=== PATIENT | male | born 1930 | race American Indian/Alaskan Native ===

== ENCOUNTER 2017-02-23 08:41 | Day surgery (SDC) | payer MEDICARE ==
[2017-02-23] MEDS ORDERED: Dextrose 5%-Lactated Ringers 1,000 ML IV SCH (09:30)
[2017-02-23] MEDS ORDERED: Lidocaine 1% with EPINEPHrine 1:100,000 50 ML MDV ONE (09:33)
[2017-02-23] MEDS ORDERED: Bupivacaine 0.5% 50 ML MDV ONE (09:33)
[2017-02-23] MEDS ORDERED: Propofol 200 MG/20 ML SDV ONE (10:58)
[2017-02-23] MEDS ORDERED: fentaNYL 100 MCG/2 ML SDV ONE (10:58)
[2017-02-23] MEDS ORDERED: Midazolam 1 MG/ML 2 ML SDV ONE (10:59)
--- NOTE | 2017-02-23 18:04 | OR ---
DATE OF PROCEDURE: 02/23/2017 PREOPERATIVE DIAGNOSIS: A 3 cm perianal mass. POSTOPERATIVE DIAGNOSIS: A 3.5 cm perianal mass. PROCEDURE: Excision of 3.5 cm perianal mass. SURGEON: Joaquin Cortez MD. ANESTHESIA: IV anesthesia with monitored anesthesia care. INDICATIONS: This 86-year-old white male has a perianal mass, it measures about 3 cm in diameter. He is here to have it excised. I counseled him for this and he gave his informed consent to proceed. DESCRIPTION OF PROCEDURE: The patient was placed in the jackknife position. IV anesthesia was administered by the Anesthesia Service. His anal and perianal area were prepped and draped in the usual sterile fashion. Time-out was held. Lidocaine 1% with epinephrine in a 50:50 mix with 0.5% Marcaine was infiltrated about the base of this mass. The mass was then excised using Bovie electrocautery and was delivered from the field. It was noted to measure 3.5 cm in greatest dimension. All looked well. Hemostasis was noted. A dressing was placed at the excision site. He was placed supine and brought to recovery room in good condition. Joaquin Cortez MD /[id number] MTDD
== END 2017-02-23 13:25 | disposition home or self-care (01) ==
LOC: JP.SDS 08:41
PROVIDERS: ATTEND Surgery
DX: D17.1 Benign lipomatous neoplasm of skin and subcutaneous tissue of trunk (principal); N18.9 Chronic kidney disease, unspecified; F32.9 Major depressive disorder, single episode, unspecified; E21.3 Hyperparathyroidism, unspecified; F03.90 Unspecified dementia, unspecified severity, without behavioral disturbance, psychotic disturbance, mood disturbance, and anxiety
CPT/HCPCS: 88304; J2250; J2704; J3010; J7042

== ENCOUNTER 2020-10-04 20:17 | Emergency (ER) | payer MEDICARE ==
[2020-10-04] MEDS ORDERED: ceFAZolin 1 GM in Premix Bag 1 BAG IV ONE ×2 (21:26→22:19)
[2020-10-04] MEDS ORDERED: Sodium Chloride 0.9% 10 ML Syringe FLUSH PRN (21:26)
[2020-10-04] MEDS ORDERED: Lidocaine 1% 20 ML MDV INJECT ONE (21:28)
[2020-10-04] MEDS ORDERED: Diphtheria,Pertussis(Acell),Tetanus Vaccine 0.5 ML Syringe IM ONE (22:00)
[2020-10-04] MEDS ORDERED: ceFAZolin 1 GM Vial ONE (22:21)
[2020-10-04] MEDS ORDERED: Sodium Chloride 0.9% 50 ML ONE (22:22)
--- NOTE | 2020-10-04 22:59 | CRLCT ---
For Patients: As a result of the Century Cures Act, medical imaging exams and procedure reports are released immediately into your electronic medical record. You may view this report before your referring provider. If you have questions, please contact your health care provider. INDICATION: FALL FROM STANDING HITTING HEAD CT HEAD WITHOUT CONTRAST TECHNIQUE: Multiple axial CT images were performed through the head without intravenous contrast administration. COMPARISON: No previous studies are currently available for comparison. FINDINGS: No acute intracranial hemorrhage is identified. No extra-axial collections are evident and there is no mass effect or midline shift. There is mild diffuse age-related brain atrophy. Ventricular size and configuration are within normal limits for the patient`s age. 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 There is patchy and confluent hypodensity in the periventricular white matter, a nonspecific finding which most likely reflects chronic small vessel ischemic change. A small to moderate-sized scalp hematoma is noted over the right frontal region. Osseous structures are within normal limits and no fractures are seen. Included portions of the paranasal sinuses and mastoid air cells are normally aerated. IMPRESSION: 1. No acute intracranial abnormality identified. 2. Right frontal scalp hematoma. No fracture is seen. 3. Mild age-related brain atrophy, white matter hypodensity consistent with chronic small vessel ischemic change, and small chronic left frontal lobe infarct. PRANAY JONES MD [employer] [employer] Dictated by Jermaine Jones MD @ 10/04/2020 10:58:10 PM Please note that all CT scans at this facility use dose modulation, iterative reconstruction, and/or weight-based dosing when appropriate to reduce radiation dose to as low as reasonably achievable. Dictated by: Jermaine Jones MD @ 10/04/2020 22:58:45 (Electronically Signed)
--- NOTE | 2020-10-05 00:34 | EDM.PDOC ---
ED HPI GENERAL MEDICAL PROBLEM - General Chief Complaint: Upper Extremity Injury/Pain Stated Complaint: FALL VIA THE [facility] Time Seen by Provider: 10/04/20 20:20 Source of Information: Reports: Patient History Limitations: Reports: No Limitations - History of Present Illness INITIAL COMMENTS - FREE TEXT/NARRATIVE: Farshad is an 89-year-old male presenting via [facility] for evaluation of deformity and pain in the right wrist after falling today. Patient is a memory care patient at the [facility] in [place], [place]. Staff found him on the ground. He did have an unwitnessed fall and has a small hematoma in his right parietal scalp but denies any headache. He does have significant dementia but is interactive and answering some questions. He has obvious deformity of the right wrist with a open wound adjacent to where the ulnar styloid likely came through the skin. He has dinner fork deformity of the right wrist. He has intact distal sensation and good capillary refill in the right hand. - Related Data Allergies Allergy/AdvReac Type Severity Reaction Status Date / Time No Known Allergies Allergy Verified 02/23/17 09:32 Home Meds: Home Meds Acetaminophen [Tylenol] 650 mg PO ASDIRECTED PRN 02/20/17 [History] Donepezil HCl [Aricept] 10 mg PO BEDTIME 02/20/17 [History] FLUoxetine HCl [Prozac] 15 mg PO DAILY 02/20/17 [History] Memantine [Namenda] 14 mg PO DAILY 02/20/17 [History] Sennosides/Docusate Sodium [Senna-S] 1 tab PO BID PRN 02/20/17 [History] Triamcinolone Acetonide [Kenalog 0.1% Crm] 1 dose TOP DAILY 02/20/17 [History] lisinopriL [Zestril] 10 mg PO DAILY 02/20/17 [History] Multivitamin [Multivitamins] 1 tab PO DAILY 02/23/17 [History] Polyvinyl Alcohol [Artificial Tears] 2 drop EYERT Q6H PRN 02/23/17 [History] Tacrolimus [Protopic 0.1% Oint] 1 applic TOP BID 02/23/17 [History] Past Medical History HEENT History: Reports: Allergic Rhinitis, Cataract, Other (See Below) Other HEENT History: 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 Cardiovascular History: Reports: Hypertension, Other (See Below) Other Cardiovascular History: atherosclerosis of galena arteries of extremities, bilat legs Respiratory History: Reports: Other (See Below) Other Respiratory History: pulm edema Gastrointestinal History: Reports: Chronic Constipation, GERD, Other (See Below) Other Gastrointestinal History: esophagitis Genitourinary History: Reports: Other (See Below) Other Genitourinary History: chronic kidney disease stage 3 Musculoskeletal History: Reports: Fracture, Other (See Below) Other Musculoskeletal History: ankle fracture Neurological History: Reports: Other (See Below) Other Neuro History: alcohol dependence with persisting dementia. Dementia. obsessive-compulsive disorder Psychiatric History: Reports: Addiction, Dementia, Depression, OCD Endocrine/Metabolic History: Reports: Other (See Below) Other Endocrine/Metabolic History: hypokalemia Hematologic History: Reports: Anemia Immunologic History: Reports: None Dermatologic History: Reports: Eczema Social & Family History - Tobacco Use Tobacco Use Status *Q: Never Tobacco User - Caffeine Use Caffeine Use: Reports: Coffee - Recreational Drug Use Recreational Drug Use: No Review of Systems - Review of Systems Review Of Systems: Unable To Obtain Reason Not Obtained: Patient has significant dementia so is not a reliable source Musculoskeletal: Reports: Joint Pain (Right wrist pain and deformity) Skin: Reports: Wound (0.4 cm wound over the volar ulnar styloid) ED EXAM, GENERAL - Physical Exam Exam: See Below Exam Limited By: Altered Mental Status (Chronic dementia) General Appearance: Alert, Mild Distress Eye Exam: Bilateral Eye: EOMI, PERRL Throat/Mouth: Normal Inspection, Normal Lips, Normal Oropharynx, Normal Voice, No Airway Compromise Head: Normocephalic, Other (Scalp hematoma over the right parietal scalp. No open wounds on the scalp.) Neck: Normal Inspection, Supple, Non-Tender, Full Range of Motion Respiratory/Chest: No Respiratory Distress, Lungs Clear, Normal Breath Sounds Cardiovascular: Normal Peripheral Pulses, Regular Rate, Rhythm, No Murmur Peripheral Pulses: 2+: Radial (L), Radial (R) GI/Abdominal: Normal Bowel Sounds, Soft, Non-Tender Extremities: Normal Capillary Refill, Joint Swelling (Colles' fracture deformity of the right wrist with a puncture wound over the volar ulnar styloid.), Limited Range of Motion (Painful movement of the right wrist) Neurological: Alert, No Motor/Sensory Deficits (Sensation in the distal right hand), Disoriented (Oriented to self only which is the patient's baseline) Skin Exam: Warm, Wound/Incision (0.3 mm puncture wound volar wrist on the right just over the ulnar styloid) ED TRAUMA EXTREMITY PROCEDURES - Splinting Right Upper Extremity Splint Site: Volar right distal extremity from elbow to hand Pre-Procedure NV Status: Normal Post-Procedure NV Status: Normal Splint Material: Fiberglass Splint Design: Volar Applied & Form Fitted By: Provider Provider Post-Splint Application NV Check: NV Status Normal, Good Position Complications: Yes (This appears to be an open fracture. Adaptec dressing was placed over the open wound and secured with Curlex, over which the splint was applied with adequate padding. Still sensation and capillary refill are normal after application.) Course - Vital Signs Last Recorded V/S: Last Vital Signs Temp 36.1 C 10/04/20 20:24 Pulse 70 10/04/20 20:52 Resp 22 H 10/04/20 21:51 BP 160/89 H 10/04/20 21:51 Pulse Ox 96 10/04/20 20:52 - Orders/Labs/Meds Orders: Active Orders 24 hr Category Date Time Status Vaccines to be Administered [RC] PER UNIT ROUTINE Care 10/04/20 22:00 Active Wrist Comp Min 3V Rt [CR] Stat Exams 10/04/20 20:20 Taken CORONAVIRUS COVID-19 RAPID [MOLEC] Stat Lab 10/05/20 00:45 Ordered Sodium Chloride 0.9% [Saline Flush] Med 10/04/20 21:26 Active 10 ml FLUSH ASDIRECTED PRN Saline Lock Insert [OM.PC] Routine Oth 10/04/20 21:26 Ordered Medication Orders Sodium Chloride (Sodium Chloride 0.9% 10 Ml Syringe) 10 ml FLUSH ASDIRECTED PRN PRN Reason: Keep Vein Open Last Admin: 10/04/20 22:37 Dose: 10 ml Documented by: PJ Labs: Laboratory Tests 10/04/20 10/04/20 Range/Units 20:42 20:42 WBC 9.4 (4.5-11.0) K/uL RBC 3.78 L (4.30-5.90) M/uL Hgb 12.4 (12.0-15.0) g/dL Hct 37.2 L (40.0-54.0) % MCV 98 (80-98) fL MCH 33 H (27-31) pg MCHC 33 (32-36) % Plt Count 151 (150-400) K/uL Neut % (Auto) 82.5 H (36-66) % Lymph % (Auto) 9.1 L (24-44) % Worth % (Auto) 6.9 H (2-6) % Eos % (Auto) 1.4 L (2-4) % Baso % (Auto) 0.1 (0-1) % Sodium 136 L (140-148) mmol/L Potassium 5.1 (3.6-5.2) mmol/L Chloride 101 (100-108) mmol/L Carbon Dioxide 26 (21-32) mmol/L Anion Gap 14.1 H (5.0-14.0) mmol/L BUN 33 H (7-18) mg/dL Creatinine 1.9 H (0.8-1.3) mg/dL Est Cr Clr Drug Dosing 28.07 mL/min Estimated GFR (MDRD) 34 L (>60) Glucose 123 H (74-106) mg/dL Calcium 8.4 L (8.5-10.1) mg/dL Meds: Medications Generic Name Dose Route Start Last Admin Trade Name Freq PRN Reason Stop Dose Admin Sodium Chloride 10 ml 10/04/20 21:26 10/04/20 22:37 Sodium Chloride 0.9% 10 Ml Syringe FLUSH 10 ml ASDIRECTED PRN Administration Keep Vein Open Discontinued Medications Generic Name Dose Route Start Last Admin Trade Name Freq PRN Reason Stop Dose Admin Cefazolin Sodium Confirm 10/04/20 22:21 10/04/20 22:33 Cefazolin 1 Gm Vial Administered 10/04/20 22:22 Not Given Dose 1 gm .ROUTE .STK-MED ONE Diphtheria/Tetanus/Acell Pertussis 0.5 ml 10/04/20 22:00 10/04/20 22:34 Diphtheria,Pertussis(Acell),Tetanus Vaccine 0.5 Ml Syringe IM 10/04/20 22:01 0.5 ml .ONCE ONE Administration Cefazolin Sodium/Dextrose 1 gm 50 mls @ 100 mls/hr 10/04/20 21:26 10/04/20 22:34 / Premix IV 10/04/20 21:55 Not Given ONETIME ONE Cefazolin Sodium/Dextrose 1 gm 50 mls @ 100 mls/hr 10/04/20 22:19 10/04/20 22:34 / Premix IV 10/04/20 22:48 100 mls/hr ONETIME ONE Administration Sodium Chloride Confirm 10/04/20 22:22 10/04/20 22:33 Normal Saline Administered 10/04/20 22:23 Not Given Dose 50 mls @ as directed .ROUTE .STK-MED ONE Lidocaine HCl 20 ml 10/04/20 21:28 10/05/20 01:03 Lidocaine 1% 20 Ml Mdv INJECT 10/04/20 21:29 Not Given ONETIME ONE - Radiology Interpretation Free Text/Narrative:: I reviewed the x-rays of the right wrist showing significant comminuted fracture of the distal radius with impaction and displacement. I reviewed the CT of the head as well as report. There is no acute intracranial abnormalities including hemorrhage, mass, or midline shift. Patient does have a right parietal scalp hematoma. There is no cranial abnormalities. - Re-Assessments/Exams Free Text/Narrative Re-Assessment/Exam: 10/05/20 00:41 I reviewed the patient's labs showing a normal CBC with a leukocyte count of 9.4, hemoglobin of 12.4, hematocrit of 37.2 and a platelet count of 151,000. The basic metabolic profile shows a sodium 136, potassium 5.1, chloride of 101, carbon of 26, BUN of 33 with a creatinine 1.9 and a glucose of 123. Calcium is 8.4. I reviewed the CT of the head as the patient had an unwitnessed fall and has a hematoma over the right parietal scalp. There was no evidence for any acute intracranial abnormalities including hemorrhage, mass, or midline shift. There is no cranial abnormalities. The right scalp hematoma is visualized. The patient had a right wrist 3 view x-ray performed showing a comminuted fracture of the distal radius and likely has an open fracture over the distal ulna. The radius is impacted and displaced with dorsal displacement of the distal segment. Does not appear that this goes into the articular surface. There is good distal sensation and capillary refill. I do appreciate a strong right radial pulse. The wound was cleansed and an Adaptec dressing was secured using Kerlix. The fracture was splinted with an adequately padded volar splint. Neurovascular assessment after application of the splint is still intact. As this is an open fracture, we boosted the patient's tetanus status and started him on Ancef 1 g IV. As we are red alert and do not have any beds available, I reached out to orthopedic surgery at [facility] in [place] who has agreed to accept the patient for further care. I discussed the case with Dr. Baum in the emergency room at [facility] who accepts the patient in transfer for admission to the hospital. EMS will provide transport of the patient. 10/05/20 01:18 COVID-19 testing is negative. Departure - Departure Time of Disposition: 00:00 Disposition: DC/Tfer to [facility] 02 Clinical Impression: Open fracture of right wrist Qualifiers: Encounter type: initial encounter Qualified Code(s): S62.101B - Fracture of unspecified carpal bone, right wrist, initial encounter for open fracture Hematoma of right parietal scalp Qualifiers: Encounter type: initial encounter Qualified Code(s): S00.03XA - Contusion of scalp, initial encounter Dementia Qualifiers: Dementia type: Alzheimer's Alzheimer's disease onset: unspecified onset Dementia behavioral disturbance: without behavioral disturbance Qualified Code(s): G30.9 - Alzheimer's disease, unspecified - Discharge Information Referrals: PCP,None [Primary Care Provider] - Forms: ED Department Discharge Sepsis Event Note (ED) - Evaluation Sepsis Screening Result: No Definite Risk - Focused Exam Vital Signs: Vital Signs Temp Pulse Resp BP Pulse Ox 10/04/20 21:51 22 H 160/89 H 10/04/20 20:52 70 18 163/94 H 96 10/04/20 20:24 36.1 C 73 16 167/91 H 96 - Problem List & Annotations (1) Open fracture of right wrist SNOMED Code(s): 857422720, 152669205 Code(s): S62.101B - FRACTURE OF UNSP CARPAL BONE, RIGHT WRIST, INIT FOR OPN FX Status: Acute Priority: Medium Current Visit: Yes Qualifiers: Encounter type: initial encounter Qualified Code(s): S62.101B - Fracture of unspecified carpal bone, right wrist, initial encounter for open fracture (2) Hematoma of right parietal scalp SNOMED Code(s): 314592907 Code(s): S00.03XA - CONTUSION OF SCALP, INITIAL ENCOUNTER Status: Acute Priority: Medium Current Visit: Yes Qualifiers: Encounter type: initial encounter Qualified Code(s): S00.03XA - Contusion of scalp, initial encounter (3) Dementia SNOMED Code(s): 00127873 Code(s): F03.90 - UNSPECIFIED DEMENTIA WITHOUT BEHAVIORAL DISTURBANCE Status: Chronic Priority: Medium Current Visit: Yes Qualifiers: Dementia type: Alzheimer's Alzheimer's disease onset: unspecified onset Dementia behavioral disturbance: without behavioral disturbance Qualified Code(s): G30.9 - Alzheimer's disease, unspecified; F02.80 - Dementia in other diseases classified elsewhere without behavioral disturbance - Problem List Review Problem List Initiated/Reviewed/Updated: Yes - My Orders Last 24 Hours: My Active Orders 10/04/20 20:20 Wrist Comp Min 3V Rt [CR] Stat 10/04/20 21:26 Sodium Chloride 0.9% [Saline Flush] 10 ml FLUSH ASDIRECTED PRN Saline Lock Insert [OM.PC] Routine 10/04/20 22:00 Vaccines to be Administered [RC] PER UNIT ROUTINE 10/05/20 00:45 CORONAVIRUS COVID-19 RAPID [MOLEC] Stat - Assessment/Plan Last 24 Hours: My Active Orders 10/04/20 20:20 Wrist Comp Min 3V Rt [CR] Stat 10/04/20 21:26 Sodium Chloride 0.9% [Saline Flush] 10 ml FLUSH ASDIRECTED PRN Saline Lock Insert [OM.PC] Routine 10/04/20 22:00 Vaccines to be Administered [RC] PER UNIT ROUTINE 10/05/20 00:45 CORONAVIRUS COVID-19 RAPID [MOLEC] Stat
--- NOTE | 2020-10-05 08:56 | CR ---
Wrist Comp Min 3V Rt CLINICAL HISTORY: Fall FINDINGS: There is an impacted fracture of the distal radius. There is some dorsal angulation. There is slight abutment of the distal ulna on the proximal carpal row. IMPRESSION: Impacted fracture distal radius
== END 2020-10-05 04:20 ==
LOC: JP.ED 20:17
DX: S52.591B Other fractures of lower end of right radius, initial encounter for open fracture type I or II (principal); S00.03XA Contusion of scalp, initial encounter; G30.9 Alzheimer's disease, unspecified; F02.80 Dementia in other diseases classified elsewhere, unspecified severity, without behavioral disturbance, psychotic disturbance, mood disturbance, and anxiety; I12.9 Hypertensive chronic kidney disease with stage 1 through stage 4 chronic kidney disease, or unspecified chronic kidney disease; N18.30 Chronic kidney disease, stage 3 unspecified; Z20.822 Contact with and (suspected) exposure to COVID-19; Z79.899 Other long term (current) drug therapy; Z23 Encounter for immunization; W18.39XA Other fall on same level, initial encounter; Y92.129 Unspecified place in nursing home as the place of occurrence of the external cause
CPT/HCPCS: 29125; 36415; 70450; 73110; 80048; 85025; 90471; 90715; 96365; 99285; J0690; U0002